=== PATIENT | female | born 1980 | race Caucasian/White ===

== ENCOUNTER → 2017-09-14 | Outpatient (CLI) | payer BC, OTHER ==
[~2017-09-14] MED LIST: MTR600X PO; PRLSR20 PO
[2017-09-14 09:24] LABS: BASO % 0.6 %; BASO ABS # 0.04 K/uL (0-0.2); EOS ABS # 0.07 K/uL (0-0.5); HEMATOCRIT 36.5 % (37-47); HEMOGLOBIN 12.8 g/dL (12.0-16.0); IG# 0.01 K/uL (0.00-0.02); LYMPH % 18.2 %; LYMPH ABS # 1.32 K/uL (1.2-3.4); MEAN CELL VOLUME 89.7 fL (80-100); MEAN CORPUSCULAR HEMOGLOBIN 31.4 pg (25-34); MEAN CORPUSCULAR HGB CONC 35.1 g/dl (32-36); MEAN PLATELET VOLUME 9.2 fL (7.4-10.4); MONO % 5.1 %; MONO ABS # 0.37 K/uL (0.11-0.59); NEUT ABS # 5.44 K/uL (1.4-6.5); PLATELET COUNT 231 K/uL (130-400); RED CELL DISTRIBUTION WIDTH CV 12.5 % (11.5-14.5); RED CELL DISTRIBUTION WIDTH SD 40.7 fL (36.4-46.3); WHITE BLOOD COUNT 7.25 K/uL (4.8-10.8)
== END | disposition home or self-care (01) ==
LOC: C.LAB 07:59
PROVIDERS: ATTEND Obstetrics & Gynecology
DX: Z34.82 Encounter for supervision of other normal pregnancy, second trimester (principal); Z3A.00 Weeks of gestation of pregnancy not specified

== ENCOUNTER 2018-03-01 06:02 | Inpatient (IN) | payer BC ==
[~2018-03-01] VITALS: Ht 162.6 cm; Wt 81.8 kg
[2018-03-04 19:42] VITALS: Ht 162.6 cm; Wt 81.8 kg
[2018-03-04 20:08] LABS: HEMATOCRIT 37.8 % (37-47); HEMOGLOBIN 13.3 g/dL (12.0-16.0); MEAN CORPUSCULAR HEMOGLOBIN 32.4 pg (25-34); MEAN CORPUSCULAR HGB CONC 35.2 g/dl (32-36); MEAN PLATELET VOLUME 9.8 fL (7.4-10.4); PLATELET COUNT 220 K/uL (130-400); RED CELL DISTRIBUTION WIDTH CV 12.5 % (11.5-14.5); RED CELL DISTRIBUTION WIDTH SD 42.2 fL (36.4-46.3); WHITE BLOOD COUNT 10.92 K/uL (4.8-10.8)
[2018-03-04] MEDS ORDERED: MISOPROSTOLTAB 50 MCG TAB PO ONE (20:45)
[2018-03-04] MEDS ORDERED: BUTORPHANOL TARTRATE 1 MG/ML VIAL IV PRN (21:00)
[2018-03-05] MEDS: LACTATED RINGER'S 1000ML 1,000 ML IV PRN ×3 (02:11→03:08)
[2018-03-05] MEDS ORDERED: EpHEDrine SULFATE INJ 50 MG/ML AMP ONE (02:17)
[2018-03-05] MEDS ORDERED: FENTANYL CITRATE INJ 50 MCG/1 ML 2 ML VIAL ONE (02:17)
[2018-03-05] MEDS ORDERED: BUPIVACAINE 0.25% 30 ML VIAL ONE (02:17)
[2018-03-05] MEDS ORDERED: FENTANYL 2MCG/ML ROPIV 1.25MG/ML 100ML BAG ONE (02:18)
[2018-03-05] MEDS ORDERED: LACTATED RINGER'S 1000ML 500 ML IV PRN ×2 (03:03→03:33)
[2018-03-05] MEDS ORDERED: EpHEDrine SULFATE INJ 50 MG/ML AMP IV PRN (03:15)
[2018-03-05] MEDS ORDERED: NALOXONE HCL INJ 0.4 MG/1 ML VIAL/CARP IV PRN (03:15)
[2018-03-05] MEDS ORDERED: FENTANYL 2MCG/ML ROPIV 1.25MG/ML 100ML BAG EPI PRN (03:15)
[2018-03-05] MEDS ORDERED: OXYTOCIN 30 UNITS/500ML NSS IV PRN ×2 (03:45→06:15)
[2018-03-05] MEDS ORDERED: NURSING VERBAL MED ORDER ONE (05:30)
[2018-03-05] MEDS ORDERED: DIPHTHERIA/TETANUS/PERTUSSIS 0.5 ML SYR/VIAL IM. ONE (06:15)
[2018-03-05] MEDS ORDERED: BENZOCAINE 20% AER SPR 82.5 GM CAN EXT PRN (06:15)
[2018-03-05] MEDS ORDERED: SUPERCREAM 0.870 % 15GM JAR EXT PRN (06:15)
[2018-03-05] MEDS ORDERED: ACETAMINOPHEN 325 MG TAB PO PRN (06:15)
[2018-03-05] MEDS ORDERED: ACETAMINOPHEN/CODEINE 300/30MG TAB PO PRN ×2 (06:15)
[2018-03-05] MEDS ORDERED: LANOLIN OINT EXT PRN (06:15)
[2018-03-05] MEDS ORDERED: HYDROCORTISONE ACETATE 25 MG SUPP PR PRN (06:15)
[2018-03-05] MEDS ORDERED: OXYCODONE/ACETAMINOPHEN 5-325 TAB PO PRN (06:15)
--- NOTE | 2018-03-05 07:56 | DELIVERY SUMMARY ---
DATE OF OPERATION: 03/05/2018 Patient is a 2, para 2. She had an uneventful course. She went over her due date. She requested induction. She was brought in. Cervix was about 2-3 cm, soft, posterior, head was high. On admission, she had no contractions. She was given p.o. Cytotec 50 mcg. With that, she began to slowly develop a contraction pattern. About 5+ hours after the dose, she was started on Pitocin, and she was given epidural for pain control. By the time she was given epidural, she was about 6 cm. After she got the epidural, we gave her some low dose Pitocin. I ruptured the membranes. Fluid was clear. She was about 7. She continued to contract. They continued to up the Pitocin. She had an additional dose of pain medicine right at the end when she was about 8+ cm. She went to full dilatation and pushed out live male infant via direct occiput anterior position over an intact perineum. was suctioned through the mouth and the nose. Shoulders were delivered without difficulty. Cord was clamped and cut by the father. Cord blood was taken. With IV Pitocin running, the placenta was removed intact. Inspection of the perineum revealed a first degree laceration. This was repaired anatomically. Running 2-0 Vicryl was used to approximate the vaginal mucosa out to beyond the hymenal ring. A deep suture of 2-0 Vicryl was used to approximate the bulbocavernosus muscle. Separate deep suture was used to approximate the perineal body, and a running subcuticular suture of 2-0 Vicryl was used to approximate the perineal skin. Following this, hemostasis was excellent. I removed all the sponges from the vagina. There were no sponges left, no hematoma formation. Estimated blood loss was 200 mL. Estimated Apgars by me was 8 and 9 respectively. I attest to the content of the Intraoperative Record and any orders documented therein. Any exception s are noted below.
--- NOTE | 2018-03-05 08:15 | Anesthesia Procedure Note ---
Anesthesia Epidural Removal Nt Date & Time Mar 05, 2018 at 08:16 Vital Signs Pain Intensity: 0.0 Notes Mental Status: alert / awake / arousable, participated in evaluation Nausea / Vomiting: adequately controlled Pain: adequately controlled Airway Patency, RR, SpO2: stable & adequate BP & HR: stable & adequate Hydration State: stable & adequate Neuraxial Anesthesia: was administered Anesthetic Complications: no major complications apparent, pt satisfied with anesthetic care Epidural: removed without complications, with tip intact
[2018-03-05] MEDS: IBUPROFEN 600 MG TAB PO PRN ×4 (08:47→23:20)
[2018-03-05 10:01] VITALS: BP 129/80; PULSE 69; TEMP 36.4; O2SAT 98
[2018-03-05] MEDS: DOCUSATE SODIUM 100 MG CAP PO SCH ×2 (10:22→19:55)
[2018-03-05] MEDS: PRENATAL VITAMIN TAB PO SCH (10:23)
[2018-03-05] MEDS: FERROUS SULFATE 325 MG TAB PO SCH (10:23)
[2018-03-05 13:14] VITALS: BP 106/68; PULSE 62; TEMP 36.7; O2SAT 96
[2018-03-05 16:12] VITALS: BP 121/81; PULSE 65; TEMP 36.5; O2SAT 98
[2018-03-05 20:10] VITALS: BP 119/79; PULSE 57; TEMP 36.6; O2SAT 98
[2018-03-05 23:10] VITALS: BP 116/73; PULSE 65; TEMP 36.5; O2SAT 96
[2018-03-06 02:20] VITALS: BP 104/65; PULSE 56; TEMP 36.6; O2SAT 96
[2018-03-06] MEDS: IBUPROFEN 600 MG TAB PO PRN ×3 (05:15→13:50)
[2018-03-06 06:43] LABS: HEMATOCRIT 36.6 % (37-47); HEMOGLOBIN 12.2 g/dL (12.0-16.0)
--- NOTE | 2018-03-06 07:22 | Progress Note ---
Subjective Mar 06, 2018. Subjective conversation w/ patient Ambulation: ambulating normally Voiding: no voiding problems Passing Gas: Yes Diet Tolerance: Regular Diet Lochia: Small Feeding Type: Breast Feeding Review of Systems Constitutional: + fever Objective Vital Signs Date Time Temp Pulse Resp B/P (MAP) Pulse Ox O2 Delivery O2 Flow Rate FiO2 03/06/18 02:20 36.6 56 16 104/65 (78) 96 Room Air 03/05/18 23:10 36.5 65 16 116/73 (87) 96 Room Air 03/05/18 20:10 36.6 57 16 119/79 (92) 98 Room Air 03/05/18 20:10 Room Air 03/05/18 16:12 98 Room Air 03/05/18 16:12 36.5 65 18 121/81 (94) 98 Room Air 03/05/18 13:14 36.7 62 18 106/68 (81) 96 Room Air 03/05/18 10:01 36.4 69 18 129/80 (96) 98 Room Air 03/05/18 09:45 Room Air Physical Exam General Appearance: WELL-APPEARING Abdomen: normal bowel sounds, non tender Fundus: Firm, Non-Tender Extremities: no pedal edema, no calf tenderness Laboratory Results Last 24 Hours Test 03/06/18 06:19 Hemoglobin 12.2 g/dL Hematocrit 36.6 % Assessment and Plan Post- Day#: 1
--- NOTE | 2018-03-06 07:24 | Discharge Instructions ---
Discharge Instructions Date of Service Mar 06, 2018. Admission Reason for Admission: Induction Discharge Discharge Diagnosis / Problem: term posterm Discharge Goals Goal(s): Routine recovery after delivery Activity Recommendations Activity Limitations: as noted below ACTIVITY RECOMMENDATIONS: * Gradual return to full activity over the next 2-3 weeks. * No lifting - nothing heavier than baby over the next 2-3 weeks. * Do not engage in vigorous exercise, sexual activity or sports until cleared by your physician. * Do not drive or operate any motorized equipment until cleared by your physician. * You may shower/bathe daily. DIET: Resume Previous Diet If Breast-feeding: * Increase caloric intake by 500 calories, eat 3 well balanced meals, 2 high protein snacks a day and drink 6-8 8oz. glasses of fluid per day. BREAST CARE: If you are not breast feeding: * Wear a supportive bra 24 hours a day for one to two weeks. * Avoid stimulating your breasts and nipples as much as possible during the first few weeks after delivery. * When taking a shower, have the warm water hit your back, not breasts. * When your breasts feel full, apply ice packs. Usually three to four times a day helps ease the discomfort. * Take a mild pain medication (Tylenol / Motrin) when you are uncomfortable. If breast feeding: * Use breast milk to lubricate nipples. Lansinoh cream may be used for sore nipples. You do not need to remove cream prior to breast feeding. If using a different brand of cream, check the label for directions regarding removal of cream prior to nursing. * Wear a supportive bra. * If having problems with breasts or breast feeding, call a aerodynamic consultant or your health care provider. OVER THE COUNTER MEDICATION: * For discomfort or pain, you may use Acetaminophen (Tylenol), Ibuprofen (Advil ), or Naproxen (Aleve) following the package directions. * For constipation you may use Colace following the package directions. SPECIAL CARE INSTRUCTIONS: * Vaginal rest (no tampons, douching, intercourse) until after doctor 's visit. * control as discussed with doctor. * Verbalizes understanding of car seat law as reviewed with patient nursing. * Car Seat hand-out given and reviewed with patient by nursing. * Shaken baby information reviewed with patient by nursing. Call you doctor if: * Temperature greater than or equal to 100.4 degrees F or 38.0 degrees C. Take your temperature twice daily for a week. * Bleeding becomes heavier than the heaviest part of your period - saturating a sanitary pad within an hour. * Passing large clots. * Bleeding has a foul smelling odor. * Signs and symptoms of phlebitis: leg pain, warm, red or swollen area on leg. * "Baby Blues" lasting longer than two weeks. ++ If you have had a and incision has increased pain, redness, swelling, presence of any drainage, or if the incision starts to open up. If you have any questions or concerns, call your health care practitioner at [phone]. FOLLOW-UP VISIT: Please call the office at to schedule a 6 week examination. . Current Hospital Diet ACTIVITY RECOMMENDATIONS: * Gradual return to full activity over the next 2-3 weeks. * No lifting - nothing heavier than baby over the next 2-3 weeks. * Do not engage in vigorous exercise, sexual activity or sports until cleared by your physician. * Do not drive or operate any motorized equipment until cleared by your physician. * You may shower/bathe daily. DIET: Resume Previous Diet If Breast-feeding: * Increase caloric intake by 500 calories, eat 3 well balanced meals, 2 high protein snacks a day and drink 6-8 8oz. glasses of fluid per day. BREAST CARE: If you are not breast feeding: * Wear a supportive bra 24 hours a day for one to two weeks. * Avoid stimulating your breasts and nipples as much as possible during the first few weeks after delivery. * When taking a shower, have the warm water hit your back, not breasts. * When your breasts feel full, apply ice packs. Usually three to four times a day helps ease the discomfort. * Take a mild pain medication (Tylenol / Motrin) when you are uncomfortable. If breast feeding: * Use breast milk to lubricate nipples. Lansinoh cream may be used for sore nipples. You do not need to remove cream prior to breast feeding. If using a different brand of cream, check the label for directions regarding removal of cream prior to nursing. * Wear a supportive bra. * If having problems with breasts or breast feeding, call a aerodynamic consultant or your health care provider. OVER THE COUNTER MEDICATION: * For discomfort or pain, you may use Acetaminophen (Tylenol), Ibuprofen (Advil ), or Naproxen (Aleve) following the package directions. * For constipation you may use Colace following the package directions. SPECIAL CARE INSTRUCTIONS: * Vaginal rest (no tampons, douching, intercourse) until after doctor 's visit. * control as discussed with doctor. * Verbalizes understanding of car seat law as reviewed with patient nursing. * Car Seat hand-out given and reviewed with patient by nursing. * Shaken baby information reviewed with patient by nursing. Call you doctor if: * Temperature greater than or equal to 100.4 degrees F or 38.0 degrees C. Take your temperature twice daily for a week. * Bleeding becomes heavier than the heaviest part of your period - saturating a sanitary pad within an hour. * Passing large clots. * Bleeding has a foul smelling odor. * Signs and symptoms of phlebitis: leg pain, warm, red or swollen area on leg. * "Baby Blues" lasting longer than two weeks. ++ If you have had a and incision has increased pain, redness, swelling, presence of any drainage, or if the incision starts to open up. If you have any questions or concerns, call your health care practitioner at [phone]. FOLLOW-UP VISIT: Please call the office at to schedule a 6 week examination. Patient's current hospital diet: Regular Diet Discharge Diet Recommended Diet: Regular Diet Pending Studies Studies pending at discharge: no Medical Emergencies . Who to Call and When: Medical Emergencies: If at any time you feel your situation is an emergency, please call 911 immediately. . Non-Emergent Contact Non-Emergency issues call your: Drop Pit Worker Call Non-Emergent contact if: temperature is above 100.5 . . "Provider Documentation" section prepared by Joss Alfaro. .
[2018-03-06] MEDS: DOCUSATE SODIUM 100 MG CAP PO SCH ×2 (07:31→08:11)
[2018-03-06] MEDS: FERROUS SULFATE 325 MG TAB PO SCH (07:31)
[2018-03-06] MEDS: PRENATAL VITAMIN TAB PO SCH (07:31)
[2018-03-06 07:45] VITALS: BP 97/64; PULSE 57; TEMP 36.5; O2SAT 97
[2018-03-06 14:30] VITALS: BP_DIAS 64; PULSE 57; TEMP 36.5
[2018-03-06] MEDS ORDERED: BISACODYL 5 MG TABEC PO SCH (20:00)
[2018-03-07] MEDS ORDERED: BISACODYL 10 MG SUPP PR PRN (07:00)
== END 2018-03-06 14:45 | disposition home or self-care (01) | DRG 775 ==
LOC: C.LD 03-04 19:01 → C.OBG 03-05 09:24
PROVIDERS: ADMIT Obstetrics & Gynecology; ATTEND Obstetrics & Gynecology
PROC: 3E0P7GC Introduction of Other Therapeutic Substance into Female Reproductive, Via Natural or Artificial Opening (ICD-10-PCS; 2018-03-04)
PROC: 0HQ9XZZ Repair Perineum Skin, External Approach (ICD-10-PCS; principal; 2018-03-05)
PROC: 10E0XZZ Delivery of Products of Conception, External Approach (ICD-10-PCS; principal; 2018-03-05)
DX: O48.0 Post-term pregnancy (principal); O70.0 First degree perineal laceration during delivery; Z3A.40 40 weeks gestation of pregnancy; Z37.0 Single live birth